=== PATIENT | female | born 1950 | race Caucasian/White ===

== ENCOUNTER 2022-09-19 14:02 | Emergency (ER) | payer MEDICARE, BC ==
[2022-09-19 15:49] VITALS: BP 149/86; PULSE 77
== END 2022-09-19 15:49 | disposition home or self-care (01) ==
LOC: MW.ED 14:02
DX: N30.01 Acute cystitis with hematuria (principal); Z88.1 Allergy status to other antibiotic agents
CPT/HCPCS: 81001; 87086; 99284